=== PATIENT | female | born 1995 | race Caucasian/White ===

== ENCOUNTER 2021-01-25 20:59 | Emergency (ER) | payer OTHER ==
--- OUTSIDE RECORDS SUMMARY | 2021-01-25 21:05 | XMS REPORT | Continuity of Care Document ---
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 [facility] LjwdxkbPnmplqxa9565-34-89 16:52:00Non ReactiveMemorial HermannSerology 2014-04-26 16:52:00 Test Item Value Reference Range Interpretation Comments RUBELLA IGG (test code = RUBELLA IGG) 46.0 1 [facility] AaejqgoWblvlajx4419-43-38 16:52:00Non ReactiveMemorial HermannSerology 2014-04-26 16:52:00 Test Item Value Reference Range Interpretation Comments RUBELLA IGG (test code = RUBELLA IGG) 46.0 1 [facility] LntnsvkWplwgrisyb9864-04-98 16:52:00YellowMemorial HermannUrinalysis 2014-04-26 16:52:00FewMemorial YxqiqnfNabufdwsie3424-19-71 16:52:00Yellow [facility] TdhgdfcKdvpirymij9903-18-94 16:52:00FewMemorial [place]
[2021-01-25 23:27] LABS: Urine Blood Trace-intact (Negative); Urine Glucose Negative (Negative); Urine Protein 1+ (Negative); Urine Specific Gravity 1.025 (1.005-1.030)
[2021-01-25 23:51] LABS: Absolute Lymphocytes (CBC) 3.2 K/uL (0.7-4.9); Basophils % 0.4 % (0-1.3); Lymphocytes % 23.7 % (15.3-44.8); RBC Red Blood Cell Count 3.89 M/uL (3.86-4.86)
[2021-01-26 00:05] LABS: Urine Specific Gravity/Preg 1.025 (1.005-1.030)
[2021-01-26 00:20] LABS: BUN Blood Urea Nitrogen 12 mg/dL (7-18); Bicarbonate 22 mmol/L (21-32); Glucose Level 86 mg/dL (74-106); HCG, Quantitative 83956 mIU/mL (1-3); Sodium Level 137 mmol/L (136-145)
[2021-01-26 00:21] LABS: Potassium 3.7 mmol/L (3.5-5.1)
--- NOTE | 2021-01-26 00:23 | ER ---
Nurse's Notes [facility] [place], [place] Name: Zoe Roger Age: 25 yrs Sex: Female : 1995 Arrival Date: 01/25/2021 Time: 21:03 Bed 27 Private MD: Diagnosis: 1 st Trimester Presentation: 01/25 22:04 Chief complaint: Patient states: "something coming out of my vaginal that looks like 2 em sacks" denies vaginal bleeding or burning with dysuria, also reports 8 weeks . Coronavirus screen: Client denies travel out of the [place] in the last 14 days. Ebola Screen: Patient negative for fever greater than or equal to 101.5 degrees Fahrenheit, and additional compatible Ebola Virus Disease symptoms Patient denies exposure to infectious person. Patient denies travel to an Ebola-affected area in the 21 days before illness onset. No symptoms or risks identified at this time. Initial Sepsis Screen: Does the patient meet any 2 criteria? No. Patient's initial sepsis screen is negative. Does the patient have a suspected source of infection? No. Patient's initial sepsis screen is negative. Risk Assessment: Do you want to hurt yourself or someone else? Patient reports no desire to harm self or others. Onset of symptoms was January 25, 2021. 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 - Social history:: Smoking status: Patient reports the use of cigarette tobacco products, smokes one pack cigarettes per day. Screenin:36 Abuse screen: Denies threats or abuse. Denies injuries from another. Nutritional zb screening: No deficits noted. Tuberculosis screening: No symptoms or risk factors identified. Fall Risk None identified. Assessment: 23:37 General: Appears in no apparent distress. Behavior is calm, cooperative, appropriate zb for age. Pain: Complains of pain in vaginal opening Pain currently is 1 out of 10 on a pain scale. Neuro: Level of Consciousness is awake, alert, obeys commands, Oriented to person, place, time. Cardiovascular: Patient's skin is warm and dry. Respiratory: Airway is patent Trachea Respiratory effort is even, unlabored, Respiratory pattern is regular. GI:. : Urine is cloudy, Swelling noted at vaginal opening Reports pain vaginal itching, Denies vaginal bleeding, Patient is sexually active. Derm: Skin is intact, is healthy with good turgor. Musculoskeletal: Range of motion: intact in all extremities. 01/26 00:38 Reassessment: Patient and/or family updated on plan of care and expected duration. Pain ea level reassessed. Patient is alert, oriented x 3, equal unlabored respirations, skin warm/dry/pink. Discharge instruction given to patient verbalized the understanding of instruction. Vital Signs: 01/25 22:04 BP 118 / 76; Pulse 88; Resp 18; Temp 97.7; Pulse Ox 99% on R/A; Weight 81.65 kg; Height em 5 ft. 4 in. (162.56 cm); Pain 0/10; 23:48 BP 108 / 66; Pulse 81; Resp 16; Pulse Ox 98% on R/A; zb 22:04 Body Mass Index 30.90 (81.65 kg, 162.56 cm) em ED Course: 21:03 Patient arrived in ED. cf2 22:06 Triage completed. em 22:06 Arm band placed on. em 22:36 Bella Estrada, RN is Primary Nurse. zb 22:44 Balaji He MD is Attending Physician. pkl 23:37 Inserted saline lock: 20 gauge in right hand, using aseptic technique. Blood collected. zb 23:41 Patient has correct armband on for positive identification. Placed in gown. Bed in low zb position. Adult w/ patient. Pulse ox on. NIBP on. Door closed. Noise minimized. 23:49 Assist provider with pelvic exam: Set up pelvic tray. Performed by Balaji He MD Patient zb tolerated well. 01/26 00:38 IV discontinued, intact, bleeding controlled, No redness/swelling at site. Pressure ea dressing applied. Administered Medications: No medications were administered Outcome: 01/25 23:40 Condition: stable zb 01/26 00:23 Discharge ordered by . pkl 00:27 Discharged to home ambulatory, with family. ea 00:27 Discharge instructions given to patient, Instructed on discharge instructions, follow up and referral plans. Demonstrated understanding of instructions, follow-up care. 00:39 Patient left the ED. ryan Signatures: Balaji He MD MD pkl Munoz, Edgar, RN RN Vanessa Chavez RN RN ea Frazier, [place] [facility] Bella Estrada RN RN zb Corrections: (The following items were deleted from the chart) 01/25 23:49 23:37 No provider procedures requiring assistance completed. anuj leslie
--- NOTE | 2021-01-26 00:24 | EDPHYS ---
Physician Documentation [facility] Name: Zoe Roger Age: 25 yrs Sex: Female : 1995 Arrival Date: 01/25/2021 Time: 21:03 Bed 27 Private MD: ED Physician Balaji He HPI: 01/25 23:37 This 25 yrs old Female presents to ER via Ambulatory with complaints of 8 WKS pkl , VAGINAL DISCOMFORT. 23:37 The patient presents with Patient said something coming out the vagina when she was pkl having sexual intercourse. Patient said she is about 8 weeks . 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 - Social history:: Smoking status: Patient reports the use of cigarette tobacco products, smokes one pack cigarettes per day. ROS: 23:37 Negative for vaginal bleeding. pkl 23:37 Eyes: Negative for injury, pain, redness, and discharge, ENT: Negative for injury, pain, and discharge, Neck: Negative for injury, pain, and swelling, Cardiovascular: Negative for chest pain, palpitations, and edema, Respiratory: Negative for shortness of breath, cough, wheezing, and pleuritic chest pain, Abdomen/GI: Negative for abdominal pain, nausea, vomiting, diarrhea, and constipation, Back: Negative for injury and pain, MS/Extremity: Negative for injury and deformity, Skin: Negative for injury, rash, and discoloration, Neuro: Negative for headache, weakness, numbness, tingling, and seizure. Exam: 23:37 Head/Face: Normocephalic, atraumatic. Eyes: Pupils equal round and reactive to light, pkl extra-ocular motions intact. Lids and lashes normal. Conjunctiva and sclera are non-icteric and not injected. Cornea within normal limits. Periorbital areas with no swelling, redness, or edema. ENT: Nares patent. No nasal discharge, no septal abnormalities noted. Tympanic membranes are normal and external auditory canals are clear. Oropharynx with no redness, swelling, or masses, exudates, or evidence of obstruction, uvula midline. Mucous membranes moist. Neck: Trachea midline, no thyromegaly or masses palpated, and no cervical lymphadenopathy. Supple, full range of motion without nuchal rigidity, or vertebral point tenderness. No Meningismus. Chest/axilla: Normal chest wall appearance and motion. Nontender with no deformity. No lesions are appreciated. Cardiovascular: Regular rate and rhythm with a normal S1 and S2. No gallops, murmurs, or rubs. Normal PMI, no JVD. No pulse deficits. Respiratory: Lungs have equal breath sounds bilaterally, clear to auscultation and percussion. No rales, rhonchi or wheezes noted. No increased work of breathing, no retractions or nasal flaring. Abdomen/GI: Soft, non-tender, with normal bowel sounds. No distension or tympany. No guarding or rebound. No evidence of tenderness throughout. Back: No spinal tenderness. No costovertebral tenderness. Full range of motion. Skin: Warm, dry with normal turgor. Normal color with no rashes, no lesions, and no evidence of cellulitis. MS/ Extremity: Pulses equal, no cyanosis. Neurovascular intact. Full, normal range of motion. Neuro: Awake and alert, GCS 15, oriented to person, place, time, and situation. Cranial nerves II-XII grossly intact. Motor strength 5/5 in all extremities. Sensory grossly intact. Cerebellar exam normal. Normal gait. 23:37 : Pelvic Exam: Speculum exam: no bleeding is noted. Vital Signs: 22:04 BP 118 / 76; Pulse 88; Resp 18; Temp 97.7; Pulse Ox 99% on R/A; Weight 81.65 kg; Height em 5 ft. 4 in. (162.56 cm); Pain 0/10; 23:48 BP 108 / 66; Pulse 81; Resp 16; Pulse Ox 98% on R/A; zb 22:04 Body Mass Index 30.90 (81.65 kg, 162.56 cm) em MDM: 22:44 Patient medically screened. 01/26 00:22 Data reviewed: vital signs, nurses notes, lab test result(s). [facility] 01/25 22:50 Order name: CBC with Diff; Complete Time: 00:08 [facility] 01/25 22:50 Order name: Chem 7; Complete Time: 00:21 [facility] 01/25 22:50 Order name: Quantitative Hcg; Complete Time: 00:21 pkl 01/25 23:27 Order name: Urine Dipstick-Ancillary; Complete Time: 23:42 EDMS 01/25 23:28 Order name: Urine --Ancillary (enter results); Complete Time: 00:08 tt3 01/25 23:28 Order name: Urine Test (obtain specimen); Complete Time: 23:28 tt3 Administered Medications: No medications were administered Disposition Summary: 01/26/21 00:23 Discharge Ordered Location: Home pkl Problem: new pkl Symptoms: have improved pkl Condition: Stable pkl Diagnosis - 1 st Trimester pkl Followup: pkl - With: Private Physician - When: 2 - 3 days - Reason: Re-evaluation by your physician Forms: - Medication Reconciliation Form pkl - Thank You Letter pkl - Antibiotic Education pkl - Prescription Opioid Use pkl Signatures: Dispatcher [employer] EDBalaji Elam MD MD pkl Aries Rush RN RN Chad Cruz tt3 Corrections: (The following items were deleted from the chart) 01/25 22:51 22:50 RH TYPE+BB.LAB.BRZ ordered. EDMS EDMS
[2021-01-26 01:13] VITALS: TEMP 97.7
[2021-01-26 01:16] VITALS: BP 108/66; O2SAT 98
== END 2021-01-26 00:39 | disposition home or self-care (01) ==
LOC: ER 20:59
DX: O26.891 Other specified pregnancy related conditions, first trimester (principal); O99.331 Smoking (tobacco) complicating pregnancy, first trimester; F17.210 Nicotine dependence, cigarettes, uncomplicated; Z3A.08 8 weeks gestation of pregnancy
CPT/HCPCS: 36415; 80048; 81003; 81025; 84702; 85025; 99284